=== PATIENT | female | born 1980 | race African-American/Black ===

== ENCOUNTER 2018-01-01 16:59 | Emergency (ER) | payer OTHER ==
[2018-01-01 17:06] VITALS: TEMP 98.2; BMI 28.9
[2018-01-01] MEDS ORDERED: ACETAMINOPHEN 325 MG TABLET (FP) PO ONE (17:07)
--- NOTE | 2018-01-01 17:07 | PDOC ---
Rapid Medical Evaluation Time Seen by Provider: 01/01/18 17:01 Medical Evaluation: Allergies Allergy/AdvReac Type Severity Reaction Status Date / Time No Known Allergies Allergy Verified 01/01/18 17:01 01/01/18 17:01 The patient presents with a chief complaint of: L chest pain since Friday. States that she has past hx of pneumothorax on the R. Pain has increased since Friday. Sent by PCP to have pain further evaluated. Increased pain when taking deep breaths. Denies SOB, n/v/d I have performed a brief in-person evaluation of this patient; Pertinent physical exam findings: ambulatory, in no respiratory distress, lung sounds diminished on the L. Scattered wheezing. No JVD noted I have ordered the following: CBC, CMP, EKG, CXR, tylenold The patient will proceed to the ED for further evaluation.
[2018-01-01 17:33] LABS: BASO % 0.7 % (0-2.0); EOS % 1.3 % (0-4.5); HEMATOCRIT 41.5 % (32.4-45.2); HEMOGLOBIN 13.3 GM/dL (10.7-15.3); LYMPH % 29.3 % (8-40); MCH 26.1 pg (25.7-33.7); MEAN CELL VOLUME 81.7 fl (80-96); MEAN PLT VOLUME 8.9 fl (7.5-11.1); MONO % 6.7 % (3.8-10.2); PLATELET COUNT 328 K/MM3 (134-434); RBC 5.08 M/mm3 (3.60-5.2); RDW 13.4 % (11.6-15.6); WHITE BLOOD COUNT 7.5 K/mm3 (4.0-10.0)
[2018-01-01 17:57] LABS: ALBUMIN 3.9 g/dl (3.4-5.0); ANION GAP 5 (8-16); BILIRUBIN,TOTAL 0.6 mg/dL (0.2-1.0); BLOOD UREA NITROGEN 12 mg/dL (7-18); CALCIUM 8.6 mg/dL (8.5-10.1); CHLORIDE 105 mmol/L (98-107); CO2 27 mmol/L (21-32); CREATININE 0.8 mg/dL (0.55-1.02); GLUCOSE,RANDOM 110 mg/dL (74-106); POTASSIUM 4.3 mmol/L (3.5-5.1); SGOT/AST 11 U/L (15-37); SGPT/ALT 29 U/L (12-78); SODIUM 137 mmol/L (136-145); TOT PROT 7.9 g/dl (6.4-8.2)
[2018-01-01 17:58] LABS: ALK PHOS 90 U/L (45-117)
--- NOTE | 2018-01-01 20:19 | PDOC ---
History of Present Illness - General Chief Complaint: Back Pain Stated Complaint: PAIN Time Seen by Provider: 01/01/18 17:01 - History of Present Illness Initial Comments: 01/01/18 22:39 The patient is a 37 year old female with history of right sided pneumothorax who presents to the ED complaining of approximately 5 days of left sided thoracic back pain. The patient describes her pain as improved with sitting up and worse with lying flat and deep inspiration. She states her pain is similar to but not exactly like her previous pneumothorax. She was seen by her PCP who ordered an outpt chest CT, but she states pain became unbearable so she came to the ED. The patient denies wheezing or shortness of breath. She denies nausea, vomiting, or diarrhea. Past History - Past Medical History Allergies/Adverse Reactions: Allergies Allergy/AdvReac Type Severity Reaction Status Date / Time No Known Allergies Allergy Verified 01/01/18 17:01 Home Medications: Ambulatory Orders NK [No Known Home Medication] 01/01/18 COPD: No Other medical history: pneumothorax 11/2015 lung blebs - Suicide/Smoking/Psychosocial Hx Smoking History: Never smoked Have you smoked in the past 12 months: No Review of Systems - Review of Systems Comments:: 01/01/18 22:39 "GENERAL/CONSTITUTIONAL: No fever or chills. No weakness. HEAD, EYES, EARS, NOSE AND THROAT: No change in vision. No ear pain or discharge. No sore throat. CARDIOVASCULAR: No chest pain or shortness of breath. RESPIRATORY: +L pleuritic upper back pain. No cough, wheezing, or hemoptysis. GASTROINTESTINAL: No nausea, vomiting, diarrhea or constipation. GENITOURINARY: No dysuria, frequency, or change in urination. MUSCULOSKELETAL: No joint or muscle swelling or pain. No neck or back pain. SKIN: No rash NEUROLOGIC: No headache, vertigo, loss of consciousness, or change in strength/ sensation. ENDOCRINE: No increased thirst. No abnormal weight change. HEMATOLOGIC/LYMPHATIC: No anemia, easy bleeding, or history of blood clots. ALLERGIC/IMMUNOLOGIC: No hives or skin allergy." *Physical Exam - Vital Signs Last Vital Signs Temp Pulse Resp BP Pulse Ox 98.2 F 80 16 134/82 99 01/01/18 17:01 01/01/18 23:28 01/01/18 23:28 01/01/18 23:28 01/01/18 23:28 - Physical Exam Comments: 01/01/18 20:19 "GENERAL: Awake, alert, and fully oriented, in no acute distress HEAD: No signs of trauma EYES: PERRLA, EOMI, sclera anicteric, conjunctiva clear ENT: Auricles normal inspection, hearing grossly normal, nares patent, oropharynx clear without exudates. Moist mucosa NECK: Nontender, no stepoffs, Normal ROM, supple, no lymphadenopathy, JVD, or masses LUNGS: Breath sounds equal, clear to auscultation bilaterally. No wheezes, and no crackles HEART: Regular rate and rhythm, normal S1 and S2, no murmurs, rubs or gallops ABDOMEN: Soft, nontender, normoactive bowel sounds. No guarding, no rebound. No masses EXTREMITIES: Normal range of motion, no edema. No clubbing or cyanosis. No cords, erythema, or tenderness NEUROLOGICAL: Cranial nerves II through XII intact. 5/5 strength and sensation in all extremities, Normal speech, normal gait, normal cerebellar function SKIN: Warm, Dry, normal turgor, no rashes or lesions noted. " Heart Score/ECG Review - History History: Slightly suspicious - Electrocardiogram EKG: Normal - Age Age: </= 45 - Risk Factors Based on the list above the patient has:: No risk factors known - Troponin Troponin: </= normal limit - Score Heart Score - Total: 0 - ECG Impressions Comment:: 01/01/18 20:17 NSR, no REINALDO/STDs, no TWIs, axis wnl, intervals wnl, rate 70 ED Treatment Course - LABORATORY CBC & Chemistry Diagram: 01/01/18 17:22 01/01/18 17:22 - ADDITIONAL ORDERS Additional order review: 01/01/18 17:22 RBC 5.08 MCV 81.7 MCHC 32.0 RDW 13.4 MPV 8.9 Neutrophils % 62.0 Lymphocytes % 29.3 Monocytes % 6.7 Eosinophils % 1.3 Basophils % 0.7 - RADIOLOGY Radiology Studies Ordered: Category Date Time Status CHEST CTA [CT] Stat CT Scan 01/01/18 20:04 Completed - Medications Given in the ED: ED Medications Discontinued Medications Generic Name Dose Route Start Last Admin Trade Name Freq PRN Reason Stop Dose Admin Acetaminophen 650 mg 01/01/18 17:07 01/01/18 17:45 Tylenol - PO 01/01/18 17:08 Not Given ONCE ONE Medical Decision Making - Medical Decision Making 01/01/18 20:17 37 F with h/o PTX presenting to ED with pleuritic L sided chest pain. Pt with equal lung sounds on exam, but will r/o PTX with XR. PE is unlikely as pt has no risk factors, but given pleuritic nature, will send D dimer. ACS unlikely given nonischemic EKG. - Labs, trop, ddimer - CXR Labs wnl CT chest negative. Pt is well appearing, with normal vitals. Clinically stable for DC at this time. I discussed the physical exam findings, ancillary test results and final diagnoses with the patient. I answered all of the patient's questions. The patient was satisfied with the care received and felt comfortable with the discharge plan and treatment plan. The patient agrees to follow up with the primary care physician within 24-72 hours. *DC/Admit/Observation/Transfer Diagnosis at time of Disposition: Chest pain - Discharge Dispostion Disposition: HOME - Referrals Referrals: Hunter Louis [Primary Care Provider] - Hi Baker MD [Staff Physician] - - Patient Instructions Printed Discharge Instructions: DI for Atypical Chest Pain Additional Instructions: Your CT scan and labs were normal today. If you experience worsening chest pain, shortness of breath, or any other concerning symptoms, return to the ER immediately. Otherwise, follow up with your primary doctor within 1 week. You should also see a professor of economics for further evaluation of your chest pain. Even though your EKG and bloodwork were normal, we cannot rule out all heart disease. Call the number provided to make an appointment with our professor of economics. - Post Discharge Activity - Attestations Physician Attestion: 01/01/18 22:44 I, Dr. Adelfo Ybarra MD, attest that this document has been prepared under my direction and personally reviewed by me in its entirety. I further attest, that it accurately reflects all work, treatment, procedures and medical decision -making performed by me.
[2018-01-01 23:29] VITALS: BP 134/82; PULSE 80
--- NOTE | 2018-01-02 09:36 | EKG ---
Test Reason : Blood Pressure : / mmHG Vent. Rate : 070 BPM Atrial Rate : 070 BPM P-R Int : 126 ms QRS Dur : 080 ms QT Int : 378 ms P-R-T Axes : 068 074 051 degrees QTc Int : 408 ms NORMAL SINUS RHYTHM NORMAL ECG NO PREVIOUS ECGS AVAILABLE Confirmed by HEYDI HENDRIX MD ([id number]) on 01/02/2018 9:35:33 AM Referred By: Confirmed By:HEYDI HENDRIX MD
== END 2018-01-01 23:29 | disposition home or self-care (01) ==
LOC: JER 16:59 → JERFT 16:59 → JER 23:29
DX: R07.89 Other chest pain (principal); Z87.09 Personal history of other diseases of the respiratory system
CPT/HCPCS: 36415; 71046-TC-FY; 71275-TC; 80053; 82550; 84484; 84703; 85025; 93005; 93010; 99283-25

== ENCOUNTER 2019-11-26 11:51 | Inpatient (IN) | payer BC, OTHER ==
[2019-11-25 11:44] VITALS: BMI 27.4
[2019-11-26 12:46] LABS: BASO % 0.8 % (0-2.0); EOS % 1.9 % (0-4.5); HEMATOCRIT 42.1 % (32.4-45.2); HEMOGLOBIN 13.8 GM/dL (10.7-15.3); LYMPH % 35.1 % (8-40); MCH 27.1 pg (25.7-33.7); MCHC 32.8 g/dl (32.0-36.0); MEAN CELL VOLUME 82.7 fl (80-96); MEAN PLT VOLUME 8.8 fl (7.5-11.1); MONO % 7.6 % (3.8-10.2); NEUT % 54.6 % (42.8-82.8); PLATELET COUNT 312 K/MM3 (134-434); RBC 5.09 M/mm3 (3.60-5.2); RDW 13.2 % (11.6-15.6); WHITE BLOOD COUNT 4.4 K/mm3 (4.0-10.0)
[2019-11-26] MEDS ORDERED: MIDAZOLAM HCL 2 MG/2 ML SINGLE DOSE VIAL ONE ×3 (12:54→13:53)
[2019-11-26] MEDS ORDERED: ROPIVACAINE HCL 0.5% 30ML VIAL ONE (12:55)
[2019-11-26] MEDS ORDERED: DEXAMETHASONE SOD PHOSPHATE/PF 10 MG/ML SDV ONE (12:55)
[2019-11-26 13:03] LABS: INR 1.03 (0.83-1.09); PROTHROMBIN TIME (PATIENT) 12.1 SEC (9.7-13.0)
[2019-11-26 13:05] LABS: ACTIVATED PTT 30.5 SECONDS (25.2-36.5)
[2019-11-26 13:15] LABS: ALBUMIN 4.1 g/dl (3.4-5.0); ALK PHOS 86 U/L (45-117); ANION GAP 5 MMOL/L (8-16); BILIRUBIN,TOTAL 0.4 mg/dL (0.2-1); BLOOD UREA NITROGEN 7.7 mg/dL (7-18); CALCIUM 8.9 mg/dL (8.5-10.1); CHLORIDE 106 mmol/L (98-107); CO2 27 mmol/L (21-32); CREATININE 0.7 mg/dL (0.55-1.3); GLUCOSE,RANDOM 80 mg/dL (74-106); POTASSIUM 4.5 mmol/L (3.5-5.1); SGOT/AST 20 U/L (15-37); SGPT/ALT 43 U/L (13-61); SODIUM 137 mmol/L (136-145); TOT PROT 8.1 g/dl (6.4-8.2)
[2019-11-26] MEDS ORDERED: CEFAZOLIN 2 GM in DEXTROSE 5%-WATER 100 ML IVPB ONE (13:27)
--- NOTE | 2019-11-26 13:30 | HP ---
History & Physical Update - History History: No Change - Physical Physical: No Change - Assessment Assessment: No Change - Plan Plan: No Change (Full H&P in paper chart from 11/17/[address] Louis)
[2019-11-26] MEDS ORDERED: LIDOCAINE HCL/PF 2% SDV 5ML VIAL ONE (13:52)
[2019-11-26] MEDS ORDERED: PROPOFOL 20 ML ONE (13:53)
[2019-11-26] MEDS ORDERED: ROCURONIUM BROMIDE 50 MG/5 ML SYRINGE ONE (13:53)
[2019-11-26] MEDS ORDERED: ceFAZolin SODIUM 1 GM VIAL IVPB ONE (14:11)
[2019-11-26] MEDS ORDERED: DEXAMETHASONE SOD PHOSPHATE 4 MG/1 ML VIAL ONE (14:14)
[2019-11-26] MEDS ORDERED: ceFAZolin SODIUM 1 GM VIAL ONE ×2 (14:14→18:44)
[2019-11-26] MEDS ORDERED: VECURONIUM BROMIDE 10 MG/10 ML VIAL ONE (15:11)
[2019-11-26] MEDS ORDERED: PROMETHAZINE HCL 25 MG/1 ML VIAL IVPUSH PRN (15:51)
[2019-11-26] MEDS ORDERED: PROMETHAZINE HCL 25 MG/1 ML VIAL IVPB PRN (15:51)
[2019-11-26] MEDS ORDERED: DEXAMETHASONE SOD PHOSPHATE 4 MG/1 ML VIAL IVPUSH ONE (15:51)
[2019-11-26] MEDS ORDERED: ONDANSETRON 4 MG/2 ML VIAL IVPUSH PRN ×2 (15:51)
[2019-11-26] MEDS ORDERED: HYDROmorphone *PCA* 10MG/50ML DISP.SYRIN PCA SCH (16:00)
[2019-11-26] MEDS ORDERED: NEOSTIGMINE METHYLSULFATE 0.5 MG/ML - 10 ML MDV ONE (16:57)
[2019-11-26] MEDS ORDERED: GLYCOPYRROLATE 0.2 MG/1 ML VIAL ONE (16:57)
[2019-11-26] MEDS ORDERED: fentaNYL CITRATE 250 MCG/5 ML VIAL ONE (17:01)
[2019-11-26] MEDS ORDERED: HYDROmorphone *PCA* 10MG/50ML DISP.SYRIN PCA ONE (17:30)
[2019-11-26] MEDS ORDERED: HYDROmorphone *PCA* 10MG/50ML DISP.SYRIN ONE (17:32)
--- NOTE | 2019-11-26 17:39 | OP ---
Operative Note - Note: Operative Date: 11/26/19 Pre-Operative Diagnosis: fibroids, endometriosis, pelvic pain, Operation: supracervical hysterectomy, left partial so, removal of endometrioma , lysis of adhesions Findings: endometrioma, large fibroids uterus, adhesions Post-Operative Diagnosis: Same as Pre-op Surgeon: Poncho Dotson Heating And Ventilating Tender: Flo Samuels Anesthesiologist/DELIVERY TRUCK DRIVER: Tami Santoyo Anesthesia: General Specimens Removed: fibroids, uterus, partial left ovary and tube, endometrioma Estimated Blood Loss (mls): 1,700 Blood Volume Replaced (mls): 300 Fluid Volume Replaced (mls): 1,200 Operative Report Dictated: Yes
[2019-11-26] MEDS ORDERED: ACETAMINOPHEN 325 MG TABLET (FP) PO PRN (17:44)
[2019-11-26] MEDS ORDERED: HYDROmorphone HCl 2 MG/ML VIAL IVPB PRN (17:44)
[2019-11-26] MEDS ORDERED: oxyCODONE HCL 5 MG TABLET PO PRN (17:44)
[2019-11-26 17:45] LABS: BASO % 0.4 % (0-2.0); EOS % 0.1 % (0-4.5); HEMATOCRIT 38.4 % (32.4-45.2); LYMPH % 9.8 % (8-40); MCHC 31.3 g/dl (32.0-36.0); MEAN CELL VOLUME 86.1 fl (80-96); MEAN PLT VOLUME 8.9 fl (7.5-11.1); MONO % 5.1 % (3.8-10.2); NEUT % 84.6 % (42.8-82.8); PLATELET COUNT 269 K/MM3 (134-434); RBC 4.46 M/mm3 (3.60-5.2); RDW 13.9 % (11.6-15.6); WHITE BLOOD COUNT 24.1 K/mm3 (4.0-10.0)
[2019-11-26 18:14] LABS: ANISOCYTOSIS 1+; MACROCYTOSIS 0; PLATELET ESTIMATE NORMAL
[2019-11-26] MEDS ORDERED: ceFAZolin 2 GRAM PREMIX BAG IVPB ONE (18:51)
[2019-11-26] MEDS ORDERED: IBUPROFEN 800 MG/8 ML IJ IVPB ONE (19:04)
[2019-11-26] MEDS: IBUPROFEN 800 MG/8 ML IJ IVPB PRN (19:14)
[2019-11-27] MEDS: CEFAZOLIN 2 GM/D5W 2 GM/50 ML ML IVPB SCH ×2 (01:27→01:28)
[2019-11-27 09:53] LABS: HEMATOCRIT 25.2 % (32.4-45.2); HEMOGLOBIN 8.4 GM/dL (10.7-15.3); MCH 27.6 pg (25.7-33.7); MCHC 33.3 g/dl (32.0-36.0); MEAN PLT VOLUME 9.1 fl (7.5-11.1); PLATELET COUNT 207 K/MM3 (134-434); RBC 3.03 M/mm3 (3.60-5.2); RDW 13.5 % (11.6-15.6); WHITE BLOOD COUNT 15.3 K/mm3 (4.0-10.0)
[2019-11-27] MEDS: IBUPROFEN 800 MG/8 ML IJ IVPB PRN (10:06)
--- NOTE | 2019-11-27 10:21 | PN ---
Progress Note (short form) - Note Progress Note: Post op day#1.S/p Suracervical hysterectomy under [place] uneventful.Patient stable and c/o pain score of 4/10 on Dilaudid ECHOCARDIOGRAPH TECH but also c/o being very drowsy.So will DC ECHOCARDIOGRAPH TECH and put patient on PO pain medication.No any anesthesia related problem.Patient Dc from the anesthesia care.
[2019-11-27] MEDS: SENNOSIDES 8.6MG TABLET (FP) PO SCH (16:27)
[2019-11-27] MEDS: oxyCODONE HCL 5 MG TABLET PO PRN ×2 (16:46→20:51)
--- NOTE | 2019-11-27 17:17 | PN ---
Progress Note, Physician Chief Complaint: post op day 1 , - Current Medication List Current Medications: Active Medications Acetaminophen (Tylenol -) 650 mg PO Q4H PRN PRN Reason: FEVER Diphenhydramine HCl (Benadryl Injection -) 12.5 mg IVPUSH ONCE PRN PRN Reason: FOR ITCHING Ferrous Sulfate (Feosol -) 325 mg PO BID [facility] Dextrose/Lactated Ringer's (D5-Lr -) 1,000 mls @ 125 mls/hr IV ASDIR [facility] Ibuprofen (Caldolor Injection -) 800 mg IVPB Q8H PRN PRN Reason: PAIN LEVEL 4 - 6 Last Admin: 11/27/19 10:06 Dose: 800 mg Ondansetron HCl (Zofran Injection) 4 mg IVPUSH Q6H PRN PRN Reason: NAUSEA AND/OR VOMITING Ondansetron HCl (Zofran Injection) 4 mg IVPUSH Q4H PRN PRN Reason: NAUSEA AND/OR VOMITING Oxycodone HCl (Roxicodone -) 5 mg PO Q4H PRN PRN Reason: PAIN LEVEL 6-10 Last Admin: 11/27/19 16:46 Dose: 5 mg Promethazine HCl (Phenergan Injection -) 12.5 mg IVPUSH Q6H PRN PRN Reason: NAUSEA-FOR RESCUE AFTER 15 MIN Promethazine HCl (Phenergan Injection -) 12.5 mg IVPB Q6H PRN PRN Reason: NAUSEA AND/OR VOMITING Senna (Senna -) 1 tab PO DAILY [facility] Last Admin: 11/27/19 16:27 Dose: 1 tab Simethicone (Mylicon -) 80 mg PO QID [facility] - Objective Vital Signs: Vital Signs Temperature 98.6 F 11/27/19 15:16 Pulse Rate 73 11/27/19 15:16 Respiratory Rate 20 11/27/19 15:16 Blood Pressure 102/53 L 11/27/19 15:16 O2 Sat by Pulse Oximetry (%) 100 11/27/19 09:00 Constitutional: Yes: Well Nourished, No Distress, Calm Eyes: Yes: WNL, Conjunctiva Clear, EOM Intact HENT: Yes: WNL, Atraumatic, Normocephalic Neck: Yes: WNL, Supple, Trachea Midline Cardiovascular: Yes: WNL, Regular Rate and Rhythm Respiratory: Yes: WNL, Regular, CTA Bilaterally Gastrointestinal: Yes: WNL, Normal Bowel Sounds, Soft ...Rectal Exam: Yes: WNL Genitourinary: Yes: WNL Breast(s): Yes: WNL Musculoskeletal: Yes: WNL Extremities: Yes: WNL Edema: No Peripheral Pulses WNL: Yes Peripheral Pulses: Left Radial: 1+, Right Radial: 1+, Left Doralis Pedis: 1+, Right Dorsalis Pedis: 1+, Left Femoral: 1+, Right Femoral: 1+ Wound/Incision: Yes: Clean/Dry, Well Approximated, Sutures Intact, Dressing Dry and Intact, Dressing Removed Neurological: Yes: WNL, Alert, Oriented ...Motor Strength: WNL Psychiatric: Yes: WNL, Alert, Oriented Labs: CBC, BMP 11/27/19 08:16 11/26/19 11:55 INR, PTT INR 1.03 (0.83-1.09) 11/26/19 12:01 Assessment/Plan post hysterectomy day 1, doing well, vss, h/h 25 .9, no abd distention, will observe cbc again, po iron given ,
[2019-11-27] MEDS ORDERED: BENZOCAINE/MENTH/CETYLPYRD CL 1 EACH LOZENGE MM PRN (17:36)
[2019-11-27] MEDS ORDERED: oxyCODONE HCL 5 MG TABLET PO PRN (17:44)
[2019-11-27] MEDS: SIMETHICONE 80 MG TAB.CHEW (FP) PO SCH ×2 (18:13→21:00)
[2019-11-27] MEDS ORDERED: PT OWN MED DRAWER 7, Y5N ONE (18:25)
[2019-11-27] MEDS: FERROUS SO4 325 MG TABLET (FP) PO SCH (20:59)
[2019-11-27] MEDS: DEXTROSE 5%-LACTATED RINGERS 1,000 ML IV SCH (21:00)
[2019-11-28] MEDS: CEFAZOLIN 2 GM/D5W 2 GM/50 ML ML IVPB SCH ×3 (01:23→17:58)
[2019-11-28] MEDS: oxyCODONE HCL 5 MG TABLET PO PRN ×3 (01:34→15:55)
[2019-11-28] MEDS: FERROUS SO4 325 MG TABLET (FP) PO SCH ×2 (09:36→21:04)
[2019-11-28] MEDS: SIMETHICONE 80 MG TAB.CHEW (FP) PO SCH ×4 (09:36→21:04)
[2019-11-28] MEDS: SENNOSIDES 8.6MG TABLET (FP) PO SCH (09:36)
[2019-11-28] MEDS: DEXTROSE 5%-LACTATED RINGERS 1,000 ML IV SCH ×2 (09:37→18:42)
[2019-11-28 09:41] LABS: HEMATOCRIT 22.1 % (32.4-45.2); HEMOGLOBIN 7.4 GM/dL (10.7-15.3); MCH 27.8 pg (25.7-33.7); MCHC 33.4 g/dl (32.0-36.0); MEAN CELL VOLUME 83.2 fl (80-96); PLATELET COUNT 186 K/MM3 (134-434); RBC 2.65 M/mm3 (3.60-5.2); RDW 13.5 % (11.6-15.6); WHITE BLOOD COUNT 9.9 K/mm3 (4.0-10.0)
--- NOTE | 2019-11-28 21:12 | PN ---
Progress Note, Physician - Current Medication List Current Medications: Active Medications Acetaminophen (Tylenol -) 650 mg PO Q4H PRN PRN Reason: FEVER Last Admin: 11/27/19 21:23 Dose: 650 mg Benzocaine/Menthol (Cepacol Lozenge -) 1 each MM PRN PRN PRN Reason: SORE THROAT Last Admin: 11/27/19 18:13 Dose: 1 each Diphenhydramine HCl (Benadryl Injection -) 12.5 mg IVPUSH ONCE PRN PRN Reason: FOR ITCHING Ferrous Sulfate (Feosol -) 325 mg PO BID [facility] Last Admin: 11/28/19 21:04 Dose: 325 mg Dextrose/Lactated Ringer's (D5-Lr -) 1,000 mls @ 125 mls/hr IV ASDIR [facility] Last Admin: 11/28/19 18:42 Dose: Not Given Ibuprofen (Caldolor Injection -) 800 mg IVPB Q8H PRN PRN Reason: PAIN LEVEL 4 - 6 Last Admin: 11/27/19 10:06 Dose: 800 mg Ondansetron HCl (Zofran Injection) 4 mg IVPUSH Q6H PRN PRN Reason: NAUSEA AND/OR VOMITING Ondansetron HCl (Zofran Injection) 4 mg IVPUSH Q4H PRN PRN Reason: NAUSEA AND/OR VOMITING Oxycodone HCl (Roxicodone -) 10 mg PO Q4H PRN PRN Reason: PAIN LEVEL 7-10 Last Admin: 11/28/19 15:55 Dose: 10 mg Promethazine HCl (Phenergan Injection -) 12.5 mg IVPUSH Q6H PRN PRN Reason: NAUSEA-FOR RESCUE AFTER 15 MIN Promethazine HCl (Phenergan Injection -) 12.5 mg IVPB Q6H PRN PRN Reason: NAUSEA AND/OR VOMITING Senna (Senna -) 1 tab PO DAILY [facility] Last Admin: 11/28/19 09:36 Dose: 1 tab Simethicone (Mylicon -) 80 mg PO QID [facility] Last Admin: 11/28/19 21:04 Dose: 80 mg - Objective Vital Signs: Vital Signs Temperature 99.0 F 11/28/19 14:15 Pulse Rate 95 H 11/28/19 14:15 Respiratory Rate 18 01/19/20 14:15 Blood Pressure 120/64 01/19/20 14:15 O2 Sat by Pulse Oximetry (%) 95 11/28/19 10:00 Constitutional: Yes: Well Nourished, No Distress, Calm Eyes: Yes: WNL, Conjunctiva Clear, EOM Intact HENT: Yes: WNL, Atraumatic, Normocephalic Neck: Yes: WNL, Supple, Trachea Midline Cardiovascular: Yes: WNL, Regular Rate and Rhythm Respiratory: Yes: WNL, Regular, CTA Bilaterally Gastrointestinal: Yes: WNL, Normal Bowel Sounds, Soft ...Rectal Exam: Yes: WNL Genitourinary: Yes: WNL Breast(s): Yes: WNL Musculoskeletal: Yes: WNL Extremities: Yes: WNL Edema: Yes Edema: LUE: 1+, RUE: 1+, LLE: 1+, RLE: 1+ Peripheral Pulses WNL: Yes Integumentary: Yes: WNL Wound/Incision: Yes: Clean/Dry, Well Approximated Neurological: Yes: WNL, Alert, Oriented ...Motor Strength: WNL Psychiatric: Yes: WNL, Alert, Oriented Labs: CBC, BMP 11/28/19 08:32 11/26/19 11:55 INR, PTT INR 1.03 (0.83-1.09) 11/26/19 12:01 Assessment/Plan po day 2, no fever x 2 4 hrs, vss, not symptomatic with anemia, will give iron , hold transfusion . dc home tomorrow
--- NOTE | 2019-11-28 21:18 | DS ---
Physical Examination Vital Signs: Vital Signs Temperature 99.0 F 11/28/19 14:15 Pulse Rate 95 H 11/28/19 14:15 Respiratory Rate 18 11/28/19 14:15 Blood Pressure 120/64 11/28/19 14:15 O2 Sat by Pulse Oximetry (%) 95 11/28/19 10:00 Constitutional: Yes: Well Nourished, No Distress, Calm Eyes: Yes: WNL, Conjunctiva Clear, EOM Intact HENT: Yes: WNL, Atraumatic, Normocephalic Neck: Yes: WNL, Supple, Trachea Midline Cardiovascular: Yes: WNL, Regular Rate and Rhythm Respiratory: Yes: WNL, Regular, CTA Bilaterally Gastrointestinal: Yes: WNL, Normal Bowel Sounds, Soft ...Rectal Exam: Yes: WNL Renal/: Yes: WNL Breast(s): Yes: WNL Musculoskeletal: Yes: WNL Extremities: Yes: WNL Edema: No Peripheral Pulses WNL: Yes Integumentary: Yes: WNL Wound/Incision: Yes: Clean/Dry, Well Approximated, Dressing Dry and Intact, Dressing Removed Neurological: Yes: WNL, Alert, Oriented ...Motor Strength: WNL Psychiatric: Yes: WNL, Alert, Oriented Labs: CBC, BMP 11/28/19 08:32 11/26/19 11:55 Discharge Summary Problems reviewed: Yes Reason For Visit: FIBROIDS Procedures: Principal: supracervical hysterectomy, partial left so, Hospital Course: uneventful Health Concerns: none Plan of Treatment: oob as much as possible Condition: Good - Instructions Diet, Activity, Other Instructions: Dr. abraham Tents Assembler discharge instructions Physical activity Resume your normal everyday activity as tolerated no heavy lifting or exercise until seen by your surgeon. You may walk [place] of and climb stairs. You may resume driving the car when you feel safe and comfortable behind the wheel. No sexual activity as instructed by Dr. Heller. Wound care If you have a bandage, leave it on, and keep dry for 48-72 hours. After that time discard the outer bandage. If they are tapes on the skin under the out of bandage leave them in place. They will peel off in the next 7 to 10 days. Do Not Peel them off. You may shower the day after surgery. If there are tapes present on the skin, you may shower over them. Diet There are no dietary restrictions. Eat healthy, high-fiber foods. Drink 6 to 8 glasses of liquid each day. This will assist in keeping your bowels are regular. Pain management You may take Tylenol or acetaminophen or Ibuprofen (for example, Motrin, Advil etc.) from my pain prescription medication is ordered should be taken as prescribed for moderate to severe pain. Call Dr. abraham for any of the following: Severe pain not relieved by medication Fever of 101 or higher Excessive bleeding or drainage on dressing Inability to urinate Call the office at [phone] for an appointment in seven days. Disposition: HOME - Home Medications Comprehensive Discharge Medication List: Ambulatory Orders Cholecalciferol (Vitamin D3) [Vitamin D3] 2,000 unit PO DAILY 11/25/19 Multivitamins [Tab-A-Vit -] 1 tab PO DAILY 11/25/19 Prescription Drug Monitoring Program (I-STOP) results: I-STOP reviewed and no issues identified
[2019-11-29] MEDS: oxyCODONE HCL 5 MG TABLET PO PRN (04:09)
--- NOTE | 2019-11-29 08:20 | PN ---
Progress Note, Physician Chief Complaint: none History of Present Illness: no fever, doing well - Current Medication List Current Medications: Active Medications Acetaminophen (Tylenol -) 650 mg PO Q4H PRN PRN Reason: FEVER Last Admin: 11/27/19 21:23 Dose: 650 mg Benzocaine/Menthol (Cepacol Lozenge -) 1 each MM PRN PRN PRN Reason: SORE THROAT Last Admin: 11/27/19 18:13 Dose: 1 each Diphenhydramine HCl (Benadryl Injection -) 12.5 mg IVPUSH ONCE PRN PRN Reason: FOR ITCHING Ferrous Sulfate (Feosol -) 325 mg PO BID [facility] Last Admin: 11/28/19 21:04 Dose: 325 mg Dextrose/Lactated Ringer's (D5-Lr -) 1,000 mls @ 125 mls/hr IV ASDIR [facility] Last Admin: 11/28/19 18:42 Dose: Not Given Ibuprofen (Caldolor Injection -) 800 mg IVPB Q8H PRN PRN Reason: PAIN LEVEL 4 - 6 Last Admin: 11/27/19 10:06 Dose: 800 mg Ondansetron HCl (Zofran Injection) 4 mg IVPUSH Q6H PRN PRN Reason: NAUSEA AND/OR VOMITING Ondansetron HCl (Zofran Injection) 4 mg IVPUSH Q4H PRN PRN Reason: NAUSEA AND/OR VOMITING Oxycodone HCl (Roxicodone -) 10 mg PO Q4H PRN PRN Reason: PAIN LEVEL 7-10 Last Admin: 11/29/19 04:09 Dose: 10 mg Promethazine HCl (Phenergan Injection -) 12.5 mg IVPUSH Q6H PRN PRN Reason: NAUSEA-FOR RESCUE AFTER 15 MIN Promethazine HCl (Phenergan Injection -) 12.5 mg IVPB Q6H PRN PRN Reason: NAUSEA AND/OR VOMITING Senna (Senna -) 1 tab PO DAILY [facility] Last Admin: 11/28/19 09:36 Dose: 1 tab Simethicone (Mylicon -) 80 mg PO QID [facility] Last Admin: 11/28/19 21:04 Dose: 80 mg - Objective Vital Signs: Vital Signs Temperature 98.7 F 11/29/19 05:12 Pulse Rate 86 11/29/19 05:12 Respiratory Rate 18 01/20/20 05:12 Blood Pressure 105/58 L 11/29/19 05:12 O2 Sat by Pulse Oximetry (%) 96 11/28/19 21:00 Constitutional: Yes: Well Nourished, No Distress, Calm Eyes: Yes: WNL, Conjunctiva Clear, EOM Intact HENT: Yes: WNL, Atraumatic, Normocephalic Neck: Yes: WNL, Supple, Trachea Midline Cardiovascular: Yes: WNL, Regular Rate and Rhythm Respiratory: Yes: WNL, Regular, CTA Bilaterally Gastrointestinal: Yes: WNL, Normal Bowel Sounds, Soft ...Rectal Exam: Yes: WNL Genitourinary: Yes: WNL Breast(s): Yes: WNL Musculoskeletal: Yes: WNL Extremities: Yes: WNL Edema: No Peripheral Pulses WNL: Yes Integumentary: Yes: WNL Wound/Incision: Yes: Clean/Dry, Well Approximated Neurological: Yes: WNL, Alert, Oriented ...Motor Strength: WNL Psychiatric: Yes: WNL, Alert, Oriented Labs: CBC, BMP 11/28/19 08:32 11/26/19 11:55 INR, PTT INR 1.03 (0.83-1.09) 11/26/19 12:01 Assessment/Plan no fever, pain is less now, will dc pt home w po antibiotic, oxycodene, motrin, and iron pills
[2019-11-29] MEDS: SENNOSIDES 8.6MG TABLET (FP) PO SCH (09:21)
[2019-11-29] MEDS: SIMETHICONE 80 MG TAB.CHEW (FP) PO SCH (09:21)
[2019-11-29] MEDS: FERROUS SO4 325 MG TABLET (FP) PO SCH (09:21)
[2019-11-29 10:57] VITALS: BP 119/63; PULSE 91; TEMP 98.3
--- NOTE | 2019-11-30 08:58 | OP ---
DATE OF OPERATION: 11/26/2019 PREOPERATIVE DIAGNOSES: Large fibroid uterus, endometriosis, and pelvic pain. POSTOPERATIVE DIAGNOSES: Large fibroid uterus, endometrioma, and adhesions. PROCEDURE: Supracervical hysterectomy, left partial salpingo-oophorectomy, and removal of endometrioma cyst, and lysis of adhesions. SURGEON: Poncho Dotson MD CHAIR SPRINGER: DANYELL Del Angel ANESTHESIOLOGIST: Tami Santoyo MD ANESTHESIA: General anesthesia. 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 Patient has difficulty breathing every cycle when she has menstruation cycle. According to the contract specialist and PCP, patient was recommended to have a hysterectomy. Patient was recommended to solve the endometriosis issues, so the patient was seen in my office, and patient was found to have a large fibroid uterus, and patient was sent to confirm with the sonogram by [facility]. Was found to have 2 large fibroids with 6 x 7 cm, another one 6 x 6 cm size of fibroid uterus and ovarian cysts too, which appeared to be probably endometrioma. So patient was scheduled for the surgery. All of the risks, benefits, and alternatives explained to the patient. Patient understood that this is a hysterectomy. In layman's terms, this is removal of the uterus. In layman's terms, there are no more babies in the future, and the patient understood. Because of the endometrioma because the pain comes on every cycle with her menstruation period, patient was advised that removal of the ovary would be better for diagnosis of endometriosis. Patient understood. There is no more ovarian function. There are no more hormones, and patient is willing to take p.o. hormones in the future, although the patient is only 39 years old. Patient does not want to have problems with ovarian pathology in the future, so the patient agreed preoperatively for supracervical, again, also saving the cervix to prevent prolapse of the muscle of the lower pelvic. Patient understands for supracervical part of the cervix will be removed and supracervical hysterectomy and bilateral salpingo-oophorectomy. So this is preoperative. Patient agrees. DESCRIPTION OF PROCEDURE: So patient was taken to the OR and placed on the operating room table in supine position. After the general anesthesia was obtained, the patient's abdomen and pelvis were prepped and draped in the usual sterile manner, and the Pfannenstiel incision was made. Incision was made through the skin and subcutaneous tissue until the fascia was nicked in the midline. The fascia extended bilaterally. The intraperitoneal cavity was entered, and O'Snyder retractor was placed, and the bowels were packed away, and a bladder retractor was placed, O'Snyder retractor so at this time we see the large fibroid uterus. It appeared to be about 12 to 14 weeks' size. There were large fibroids, which are protruding out of on the fundus part of the uterus. There is another one, 6 x 6 cm, on the right lower segment area of fibroid. So because fibroid was enlarged, was not able to remove completely out of pelvic cavity, so we resected the first large fibroid, 7 x 7 cm first. Did a myomectomy first. We approximated quickly for hemostasis reasons of the fundus part of the uterus. So first fibroid was removed 7 x 7-cm fibroid removed. Now we have a little better visualization of anatomy. However, at this time, anatomy is still kind of distorted from the adhesions. Right fallopian tube and ovary were adhesed to the bowel. Ovary was adhesed inside of the bowel, and the tube was seen; however, the fimbriated end was also adhesed to the bowel, so at this time, we transected round ligament and we transected tubes at this time with a LigaSure. At this time, we were looking for uterine artery at this time. However, at this time, because of fibroid also distorted the anatomy on the right lower segment area so we proceeded through the myomectomy again on the right lower segment of uterus, so 6 x 6-cm fibroid was removed at this point from the right lower segment area. Again, second myomectomy was performed then we approximated the uterine muscle for hemostasis reason. After this, we were able to visualize the right uterine artery. By using a Michelle, 1 Michelle clamp was applied junction parallel to the uterine body and the cervix in order to avoid the ureter, and again, we were paying attention to the ureter, and the patient's ureter was not palpated nor seen, so 1 Michelle clamp was applied. There was 2nd Michelle applied about 45-degree angle to the uterine artery close to the cervix and the uterine body. By doing this, uterine artery was transected and suture ligated with 2-0 Vicryl sutures. Good hemostasis was obtained. Same fashion was performed on the left side of the round ligament and the left fallopian tubes and skeletonized with the left uterine arteries, and the uterine artery was ligated in the similar fashion as the right side. So both uterine arteries were ligated. At this time, hemostasis much better obtained. So after this point, we proceed to remove more of the uterine bodies, so again, by placing another Michelle clamp, we proceeded down to the cardinal ligament another 1.5 cm down lower below the uterine artery to the cardinal ligament by using Michelle clamp was clamped and was transected and the 2-0 Vicryl applied. Good hemostasis obtained. We palpated the cervix, and we removed partially the cervix and the uterus away from the pelvic cavity. At this time, we proceeded to visualize the ovary. On the left side of the ovary was seen; however, ovary was also attached to the bowel, so we just did partial ovary, which was away from the bowel. Ovary was not able to be resected away from the bowel, so partial oophorectomy of the left side was done, and the tube was also resected separately from the ovary. The tube was resected by the LigaSure. Then ovary was reapproximated with 0 Vicryl. Good hemostasis. So the right ovary again would not be able . We visualized the tips of the ovary, but the ovary was buried onto the bowel, so we are not looking to try to resect it out of intestine in order to avoid a complication of a bowel injury. Left tube was also adhesed to the bowel so was not able to be resected away. So at this time, we focused to the endometrioma, which was in the cul-de-sac area and also another endometrioma in the left pelvic cavity area. They are both in the cul-de-sac area. Both endometrioma were about 3 x 3 cm, 3 x 4 cm, which were adhesed to the peritoneal cavity, so by using the finger to gently shell it out the pelvic cavity. So after shell out of the abdominal cavity pelvic cul-de-sac area, there was no active bleeding except for small oozing, so there was no bleeding was seen so by putting pressure with 4 x 4 and putting pressure for hemostasis reason, we watched repeatedly about 3-4 times pressure, bleeding has subsided much less. However, there is no active bleeder from the adhesion. So at this time, we applied Surgicel and pushed into the pelvic cul-de-sac area for better hemostasis reasons. Other than that, good hemostasis was obtained. Other than that, pelvic cavity was very dry. Blood loss about 1700 mL most likely from the myomectomy and the hysterectomy procedures. At this time, good hemostasis was obtained, and all of the instruments were removed. Packing was removed. O'Snyder retractors were removed, and the peritoneum was closed. Fascia was closed. Skin was closed. Draining clear urine. Blood loss was about 1700 mL. The patient tolerated the procedure well. Transferred to recovery room in stable condition. MD LEOBARDO FELIPE/[id number]
--- NOTE | 2019-12-01 12:54 | PATH ---
Surgical Pathology Report Patient Name: CHEMA MOSHER [facility] [place]. Rec. #: [id number] /Age/Gender: 1980 (Age: 39) / F Account: [id number] Location: [address] [place] [address]/[facility] Taken: 11/26/2019 Received: 11/29/2019 Reported: 12/01/2019 Physicians: Poncho Dotson MD Specimen(s) Received A: FIBROIDS B: UTERUS, RIGHT FALLOPIAN TUBE,LEFT FALLOPIAN TUBE, PARTIAL LEFT OVARY C: OVARY Clinical History Fibroids, endometriosis Final Diagnosis A. FIBROIDS, EXCISION: LEIOMYOMAS, 581 GRAMS. B. UTERUS, RIGHT AND LEFT FALLOPIAN TUBES, PARTIAL LEFT OVARY, SUPRACERVICAL HYSTERECTOMY AND LEFT SALPINGECTOMY: LEIOMYOMA. SECRETORY TYPE ENDOMETRIUM. FALLOPIAN TUBE WITH ENDOSALPINGIOSIS. OVARY WITH HEMORRHAGIC CORPUS LUTEUM AND ENDOMETRIOSIS. SEE COMMENT. C. ENDOMETRIOMA, EXCISION: OVARIAN TISSUE WITH ENDOMETRIOSIS. SEE COMMENT. Comment: Immunohistochemistry stain CD10 (block B10 and C4) performed at [place], [place] ([id number]) and interpreted at [facility] highlights the recent and old hemorrhagic stroma in the areas of endometriosis. Positive and negative controls (internal if applicable) show appropriate results. Electronically Signed Romaine Snyder M.D. Gross Description A. Received in formalin labeled "fibroids," is a 581 g aggregate of 2 roche, rubbery nodules measuring 6.8 x 5.0 x 4.0 cm and 9.5 x 9.3 x 8.8 cm. Sectioning reveals roche, firm to rubbery parenchyma with whorled architecture. No areas of hemorrhage or necrosis are identified. Restaurant [employer] sections are submitted in 8 cassettes as follows: 1-3-smaller fibroid; 4-8-larger fibroid. B. Received in formalin labeled "uterus, right and left fallopian tube, partial left ovary," is a 33 g, 6.5 x 3.8 x 2.4 cm markedly disrupted uterus. The outer surface is roche brown with multifocal adhesions, disruptions and defects. The possible endometrium is roche- brown and averages 0.1 cm in thickness. The myometrium is roche and averages 1.9 cm in thickness. There is a 0.8 cm greatest dimension intramural nodule identified. The cut surface of the nodule is roche and rubbery with whorled architecture. No areas of hemorrhage or necrosis are identified. Separately received within the same container is an 8.0 x 6.0 x 1.5 cm aggregate of multiple undesignated portions of soft tissue. There is a 3 cm in length fimbriated fallopian tube identified. The outer surface of the fallopian tube is maldonado purple and smooth. Sectioning reveals an unremarkable lumen. There is a 2.7 x 1.3 x 1.0 cm portion of ovary identified. No definitive second fallopian tube is identified. Restaurant Area [employer] sections are submitted in 14 cassettes as follows: 1-9-boycuyeo endomyometrium; 6-intramural nodule; 7-identifiable fallopian tube fimbria; 8-cross sections of identifiable fallopian tube; 9-10-ovary; 43-59-jxwtsmemkqphhl sections of separately received soft tissue fragments. C. Received in formalin labeled "endometrioma" is a 4.5 x 3.2 x 1.8 cm portion of soft tissue. The outer surface is roche-brown and smooth. Sectioning reveals brown, hemorrhagic parenchyma. Restaurant Area [employer] sections are submitted in 5 cassettes. 11/29/2019 saudi11/29/2019
== END 2019-11-29 10:50 | disposition home or self-care (01) | DRG 743 ==
LOC: JSAMEDAYSX 11:51 → J6S 21:06
PROVIDERS: ADMIT Obstetrics & Gynecology; ATTEND Obstetrics & Gynecology
PROC: 0UT60ZZ Resection of Left Fallopian Tube, Open Approach (ICD-10-PCS; 2019-11-26)
PROC: 0UB10ZZ Excision of Left Ovary, Open Approach (ICD-10-PCS; 2019-11-26)
PROC: 0DNW0ZZ Release Peritoneum, Open Approach (ICD-10-PCS; 2019-11-26)
PROC: 0UT90ZL Resection of Uterus, Supracervical, Open Approach (ICD-10-PCS; principal; 2019-11-26 13:30)
DX: D25.9 Leiomyoma of uterus, unspecified (principal); D64.9 Anemia, unspecified; N85.8 Other specified noninflammatory disorders of uterus; K66.0 Peritoneal adhesions (postprocedural) (postinfection)
CPT/HCPCS: 36415; 36430; 36511; 80053; 84702; 85025; 85027; 85610; 85730; 86593; 86850; 86900; 86901; 86922; 88305-TC; 88307-TC; 94010; 94760; P9038; P9058